=== PATIENT | female | born 1995 | race Caucasian/White ===

== ENCOUNTER 2016-07-04 07:08 | Emergency (ER) | payer OTHER ==
[~2016-07-04] VITALS: Ht 160 cm; Wt 57.6 kg
[2016-07-04 07:25] VITALS: Ht 160 cm; Wt 57.6 kg
[2016-07-04] MEDS ORDERED: KETOROLAC TROMETHAMINE 30 MG/ML VIAL IV STA (07:38)
[2016-07-04] MEDS ORDERED: SODIUM CHLORIDE 0.9% 1000ML 1,000 ML IV STA ×2 (07:38)
[2016-07-04] MEDS ORDERED: ACETAMINOPHEN 500 MG TAB PO STA (07:38)
[2016-07-04] MEDS ORDERED: ALBUT/IPRATROP 3MG/0.5MG NEB 3 ML VIAL INH STA (07:38)
[2016-07-04 08:02] LABS: BASO % 0.1 %; BASO ABS # 0.01 K/uL (0-0.2); COMPLETE YES; EOS % 0.3 %; HEMATOCRIT 38.6 % (37-47); IG% 0.3 %; LYMPH % 8.7 %; LYMPH ABS # 1.01 K/uL (1.2-3.4); MEAN CELL VOLUME 84.6 fL (80-100); MEAN CORPUSCULAR HEMOGLOBIN 28.3 pg (25-34); MEAN CORPUSCULAR HGB CONC 33.4 g/dl (32-36); MEAN PLATELET VOLUME 10.7 fL (7.4-10.4); MONO % 2.9 %; NEUT % 87.7 %; PLATELET COUNT 231 K/uL (130-400); RED BLOOD COUNT 4.56 M/uL (4.2-5.4); WHITE BLOOD COUNT 11.57 K/uL (4.8-10.8)
[2016-07-04] MEDS ORDERED: BCPILLS PO (08:06)
[2016-07-04 08:24] LABS: BUN/CREATININE RATIO 17.4 (10-20); CALCIUM 8.5 mg/dl (8.5-10.1); CREATININE 0.76 mg/dl (0.60-1.20); POTASSIUM 3.4 mmol/L (3.5-5.1)
[2016-07-04 08:27] LABS: ALB/GLOB RATIO 0.8 (0.9-2)
[2016-07-04 08:45] VITALS: O2SAT 97
--- NOTE | 2016-07-04 09:04 | DIAGNOSTIC IMAGING REPORT ---
CHEST 2 VIEWS ROUTINE CLINICAL HISTORY: Fever and sepsis. Right flank pain. COMPARISON STUDY: None FINDINGS: The heart is normal in size. There are subtle right middle lobe airspace opacities possibly representing an early pneumonitis. There is a linear opacity at the left lung base likely atelectatic. There are no pleural effusions.[ IMPRESSION: Increased markings at the right medial lung base, possibly representing an early pneumonitis. Clinical and radiographic follow-up is recommended. Electronically signed by: Guy Cool M.D. 07/04/2016 9:02 AM Dictated Date/Time: 07/04/2016 9:00 AM
[2016-07-04] MEDS ORDERED: CEFTRIAXONE SOD INJ 1 GM ADDVIAL IV STA (09:06)
[2016-07-04] MEDS ORDERED: LEVOFLOXACIN 250 MG TAB PO STA (09:06)
[2016-07-04 09:12] LABS: URINE APPEARANCE CLEAR (CLEAR); URINE BILIRUBIN NEG (NEG); URINE COLOR YELLOW; URINE NITRITE NEG (NEG); URINE SPECIFIC GRAVITY 1.014 (1.000-1.030); UROBILINOGEN NEG (NEG); ZZUR CULT IF INDIC CLEAN CATCH NO
[2016-07-04 09:14] LABS: MANUAL MICROSCOPIC REQUIRED? NO; REVIEW REQ? NO
[2016-07-04] MEDS ORDERED: LEVO1TAB35 PO (09:51)
[2016-07-04] MEDS ORDERED: ALBUTEROL HFA 8 GM INHALER INH ONE (10:00)
[2016-07-04 10:02] VITALS: BP 112/58; PULSE 88; TEMP 37; O2SAT 98
--- NOTE | 2016-07-04 14:26 | EMERGENCY ROOM VISIT NOTE ---
History Report prepared by Colleen: Yuliya Cash Under the Supervision of: Dr. Zeferino Mcbride M.D. First contact with patient: 07:35 Chief Complaint: FLANK PAIN Stated Complaint: BACK PAIN History of Present Illness The patient is a 21 year old female who presents to the Emergency Room via ALS with complaints of upper right sided back pain starting a few hours RADIO HOST. The patient currently rates the pain as a 8/10 in severity. The patient states that she went out last night and returned home about 6 hours RADIO HOST. The patient states that she ate cereal and went to sleep. She states later in the night she woke up with increased thirst and went to get water. She states when lying back down she experienced sharp right sided pain that she states worsens with movement and breathing. She states she also started to experience nausea with her symptoms. She states the pain persisted despite massage and stretching. The patient states that she has had congestion for a couple of days with an occasional cough where she has produced mucous. The patient states that her roommate has also had a cough for quite a while. The patient states that she has had pneumonia in the past but has no history of asthma or allergies. The patient states she also feels generally weak today but she relates it to possible lack of sleep. The patient denies any falls or trauma occurring last night. She also states she did not take any medications this morning. Source of History: patient Onset: few hours RADIO HOST Position: back (upper right) Symptom Intensity: 8/10 Quality: sharp Modifying Factors (Worsening): breathing, movement Associated Symptoms: + nausea, + weakness (generalized) Note: Patient denies any trauma or falls. Review of Systems See HPI for pertinent positives & negatives. A total of 10 systems reviewed and were otherwise negative. Past Medical & Surgical Medical Problems: (1) No chronic medical problems Family History Patient reports no known family medical history. Social History Smoking Status: Never Smoker Alcohol Use: occasionally Marital Status: single Housing Status: lives with roommate Occupation Status: student Current/Historical Medications Scheduled Control Pills ( Control Pills), 1 TAB PO DAILY Levofloxacin (Levaquin), 750 MG PO QD@08 Allergies Coded Allergies: No Known Allergies (Unverified , 07/04/16) Physical Exam Vital Signs Date Time Temp Pulse Resp B/P Pulse Ox O2 Delivery O2 Flow Rate FiO2 07/04/16 10:02 37.0 88 18 112/58 98 Room Air 2/25/17 08:45 97 Room Air 07/04/16 08:40 92 18 120/70 99 Room Air 07/04/16 07:25 38.7 118 20 125/74 99 Room Air Physical Exam GENERAL: Patient is in no acute distress. HEENT: No acute trauma, normocephalic atraumatic, mucous membranes moist, moderate nasal congestion, no scleral icterus. NECK: No stridor, no adenopathy, no meningismus, trachea is midline. LUNGS: Clear to auscultation bilaterally, no wheeze, no rhonchi, breath sounds equal. HEART: Tachycardic with subtle systolic murmur. Regular rhythm. CHEST: No tenderness to the chest wall. ABDOMEN: Soft, mildly tender in the epigastrium, bowel sounds positive, no hernias, no peritonitis. EXTREMITIES: No cyanosis or edema, full range of motion of all the joints without pain or difficulty, no signs for acute trauma. NEUROLOGIC: Oriented x 3, no acute motor or sensory deficits, no focal weakness. SKIN: No rash, no jaundice, no diaphoresis. Medical Decision & Procedures ER Provider Diagnostic Interpretation: X-ray results as stated below per interpretation by me and the radiologist: CHEST 2 VIEWS ROUTINE CLINICAL HISTORY: Fever and sepsis. Right flank pain. COMPARISON STUDY: None FINDINGS: The heart is normal in size. There are subtle right middle lobe airspace opacities possibly representing an early pneumonitis. There is a linear opacity at the left lung base likely atelectatic. There are no pleural effusions.[ IMPRESSION: Increased markings at the right medial lung base, possibly representing an early pneumonitis. Clinical and radiographic follow-up is recommended. Electronically signed by: Guy Cool M.D. 07/04/2016 9:02 AM Dictated Date/Time: 07/04/2016 9:00 AM Laboratory Results 07/04/16 07:20 Red Blood Count 4.56, Mean Corpuscular Volume 84.6, Mean Corpuscular Hemoglobin 28.3, Mean Corpuscular Hemoglobin Concent 33.4, Mean Platelet Volume 10.7, Neutrophils (%) (Auto) 87.7, Lymphocytes (%) (Auto) 8.7, Monocytes (%) (Auto) 2.9, Eosinophils (%) (Auto) 0.3, Basophils (%) (Auto) 0.1, Neutrophils # (Auto) 10.16, Lymphocytes # (Auto) 1.01, Monocytes # (Auto) 0.33, Eosinophils # (Auto) 0.03, Basophils # (Auto) 0.01 07/04/16 07:20 Test 07/04/16 07:20 07/04/16 08:40 07/04/16 09:00 White Blood Count 11.57 K/uL (4.8-10.8) Red Blood Count 4.56 M/uL (4.2-5.4) Hemoglobin 12.9 g/dL (12.0-16.0) Hematocrit 38.6 % (37-47) Mean Corpuscular Volume 84.6 fL (80-100) Mean Corpuscular Hemoglobin 28.3 pg (25-34) Mean Corpuscular Hemoglobin Concent 33.4 g/dl (32-36) Platelet Count 231 K/uL (130-400) Mean Platelet Volume 10.7 fL (7.4-10.4) Neutrophils (%) (Auto) 87.7 % Lymphocytes (%) (Auto) 8.7 % Monocytes (%) (Auto) 2.9 % Eosinophils (%) (Auto) 0.3 % Basophils (%) (Auto) 0.1 % Neutrophils # (Auto) 10.16 K/uL (1.4-6.5) Lymphocytes # (Auto) 1.01 K/uL (1.2-3.4) Monocytes # (Auto) 0.33 K/uL (0.11-0.59) Eosinophils # (Auto) 0.03 K/uL (0-0.5) Basophils # (Auto) 0.01 K/uL (0-0.2) RDW Standard Deviation 47.4 fL (36.4-46.3) RDW Coefficient of Variation 15.4 % (11.5-14.5) Immature Granulocyte % (Auto) 0.3 % Immature Granulocyte # (Auto) 0.03 K/uL (0.00-0.02) Anion Gap 12.0 mmol/L (3-11) Est Creatinine Clear Calc Drug Dose 97.6 ml/min Estimated GFR () 130.9 Estimated GFR (Non- 112.9 BUN/Creatinine Ratio 17.4 (10-20) Calcium Level 8.5 mg/dl (8.5-10.1) Total Bilirubin 0.3 mg/dl (0.2-1) Aspartate Amino Transf (AST/SGOT) 20 U/L (15-37) Alanine Aminotransferase (ALT/SGPT) 22 U/L (12-78) Alkaline Phosphatase 70 U/L (45-117) Total Protein 8.1 gm/dl (6.4-8.2) Albumin 3.5 gm/dl (3.4-5.0) Globulin 4.6 gm/dl (2.5-4.0) Albumin/Globulin Ratio 0.8 (0.9-2) Urine Color YELLOW Urine Appearance CLEAR (CLEAR) Urine pH 7.0 (4.5-7.5) Urine Specific [place] 1.014 (1.000-1.030) Urine Protein NEG (NEG) Urine Glucose (UA) NEG (NEG) Urine Ketones NEG (NEG) Urine Occult Blood NEG (NEG) Urine Nitrite NEG (NEG) Urine Bilirubin NEG (NEG) Urine Urobilinogen NEG (NEG) Urine Leukocyte Esterase NEG (NEG) Urine Test NEG (NEG) Influenza Type A Antigen Neg for Influ A (NEG) Influenza Type B Antigen Neg for Influ B (NEG) urine dip shows 2+ leukocytes and trace blood Laboratory results reviewed by me. Medications Administered Medications (Trade) Dose Ordered Sig/Diana Route Start Time Stop Time Status Last Admin Dose Admin Sodium Chloride (Nss 1000ml) 1,000 ml @ 200 mls/hr Q5H STAT IV 07/04/16 07:38 07/04/16 11:10 DC 07/04/16 08:36 200 MLS/HR Acetaminophen 1000 mg 1,000 mg NOW STAT PO 07/04/16 07:38 07/04/16 07:44 DC 07/04/16 08:35 1,000 MG Sodium Chloride (Nss 1000ml) 1,000 ml @ 999 mls/hr Q1H1M STAT IV 07/04/16 07:38 07/04/16 08:38 DC 07/04/16 07:38 999 MLS/HR Ketorolac Tromethamine (Toradol Inj) 30 mg NOW STAT IV 07/04/16 07:38 07/04/16 07:44 DC 07/04/16 08:35 30 MG Albuterol/ Ipratropium (Duoneb) 3 ml NOW STAT INH 07/04/16 07:38 07/04/16 07:44 DC 07/04/16 08:35 3 ML Levofloxacin (Levaquin Tab) 750 mg NOW STAT PO 07/04/16 09:06 07/04/16 09:08 DC 07/04/16 09:44 750 MG Ceftriaxone Sodium (Rocephin Inj) 1 gm NOW STAT IV 07/04/16 09:06 07/04/16 09:08 DC 07/04/16 09:44 1 GM Albuterol (Ventolin Hfa Inhaler) 2 puffs NOW ONCE INH 07/04/16 10:00 07/04/16 10:01 DC 07/04/16 09:59 2 PUFFS ED Course 0736: The patient was evaluated in room A9B. A complete history and physical exam was performed. 0738: Ordered Duoneb 3 ml INH, Toradol Inj 30 mg IV, Sodium Chloride 1,000 ml @ 999 mls/hr IV, Tylenol Tab 1,000 mg PO, Sodium Chloride 1,000 ml @ 200 mls/hr IV. 0906: Ordered Rocephin Inj 1 gm IV, Levaquin Tab 750 mg PO. 0940: Reevaluated the patient. Discussed results and discharge instructions: She verbalized understanding and agreement. The patient is ready for discharge. 1000: Ordered Albuterol 2 puff INH. Medical Decision The patient is a 21 year old female who presents to the ED with complaints of right sided flank pain. Differential diagnoses considered include pneumonia, bronchitis, kidney infection, pneumothorax, PE, dehydration, influenza, musculoskeletal pain. There is a mild leukocytosis which would be consistent with infection, no concerning anemia. No significant electrolyte abnormality, kidney failure or hepatitis. Urinalysis does not show infection. testing is negative. Chest film shows a right lower lung pneumonia. The patient received a DuoNeb, IV saline, IV ceftriaxone. She received IV Toradol for pain, she was given oral Tylenol. She was given a dose of oral Levaquin. She received albuterol via [facility]I. The patient is not hypoxic or toxic. She has pneumonia, this has caused her pleuritic chest pain. She is being discharged on Levaquin, she will use albuterol, [id number] fever control with Motrin or Tylenol. Rest and hydration were encouraged. If worsening, she should return. Impression Primary Impression: Pneumonia Additional Impression: Right-sided chest pain Scribe Attestation The scribe's documentation has been prepared under my direction and personally reviewed by me in its entirety. I confirm that the note above accurately reflects all work, treatment, procedures, and medical decision making performed by me. Departure Information Dispostion Home / Self-Care Prescriptions Levofloxacin (Levaquin) 750 Mg Tab 750 MG PO QD@08, #5 TAB Prov: Zeferino Mcbride M.D. 07/04/16 Forms HOME CARE DOCUMENTATION FORM, IMPORTANT VISIT INFORMATION Patient Instructions My [facility] Additional Instructions follow with S this week for a recheck rest fluids motrin and or tylenol for pain and fever levaquin daily for 5 more days--next dose tomorrow am albuterol 3 puffs every 4-6 hours return for worsening symptoms or if feeling more short of breath Problem Qualifiers
== END 2016-07-04 10:16 | disposition home or self-care (01) ==
LOC: C.EDA 07:10
DX: J18.9 Pneumonia, unspecified organism (principal); R07.9 Chest pain, unspecified